=== PATIENT | female | born 1965 | race Caucasian/White ===

== ENCOUNTER 2017-07-27 11:00 | Outpatient (RCR) | payer OTHER ==
[2014-07-04 18:51] VITALS: BP 155/93
[~2017-07-27 11:00] MED LIST: ALPHA LIPOIC A200 MG PO; APIDRA100 U/ML SC; CHILDREN'S ASPI81 M1 PO; FISH OIL 1000MG1 CAP PO; FLUOXETINE20 MG PO; GLUMETZA1000 MG PO; LANTUS100 U/ML SQ; LISINOPRIL20 MG PO; LYRICA100 MG PO; METOPROLOL SUCC50 MG PO; MULTI VITAMINS1 TAB PO; VICTOZA6 MG/ML SC; ZOCOR 40MG40 MG PO
== END 2017-07-31 13:58 | disposition home or self-care (01) ==
LOC: PT 11:00
DX: M25.511 Pain in right shoulder (principal)

== ENCOUNTER 2017-10-09 14:48 | Emergency (ER) | payer OTHER ==
[2014-07-04 18:51] VITALS: BP 155/93
== END 2017-10-09 17:25 | disposition expired ==
LOC: ED 14:48
DX: I46.9 Cardiac arrest, cause unspecified (principal); E11.40 Type 2 diabetes mellitus with diabetic neuropathy, unspecified; Z79.4 Long term (current) use of insulin; I10 Essential (primary) hypertension; E78.5 Hyperlipidemia, unspecified; F32.9 Major depressive disorder, single episode, unspecified; E66.01 Morbid (severe) obesity due to excess calories
CPT/HCPCS: J0171